=== PATIENT | female | born 1980 | race Two or more races ===

== ENCOUNTER 2022-05-23 14:43 | Emergency (ER) | payer BC, OTHER ==
[~2022-05-23] VITALS: Ht 160 cm; Wt 96.3 kg
[2022-05-23] MEDS ORDERED: ONDANSETRON ODT 4 MG TAB PO ONE (15:45)
[2022-05-23 16:31] LABS: Urine Bacteria NONE SEEN /hpf (None Seen); Urine Blood Negative /uL (Negative); Urine Mucus FEW (None Seen); Urine Specific Gravity 1.029 (1.001-1.035); Urine WBC 30 /hpf (0 - 5)
[2022-05-23] MEDS ORDERED: NITR-87 PO (19:08)
[2022-05-23] MEDS ORDERED: HYDR-4902 PO (19:08)
[2022-05-23] MEDS ORDERED: IBUP800T26 PO (19:08)
[2022-05-23] MEDS ORDERED: ONDA-144 PO (19:09)
[2022-05-23 20:01] VITALS: BP 126/82
== END 2022-05-23 20:02 | disposition home or self-care (01) ==
LOC: ER 14:43
DX: M47.816 Spondylosis without myelopathy or radiculopathy, lumbar region (principal); N39.0 Urinary tract infection, site not specified
CPT/HCPCS: 74176; 81001; 99284; Q0162